=== PATIENT | male | born 1945 | race Caucasian/White ===

== ENCOUNTER → 2019-01-01 | Outpatient (CLI) | payer OTHER ==
[~2019-01-01] MED LIST: ASPI-1005 PO; ATOR40TA69 PO; CLOP75TA32 PO; GLIM4TAB3 PO; INSU100I21 SQ; LEVO75TA10 PO; LEVO88TA7 PO; LOSA50TA64 PO; METO-408 PO; SERT50TA12 PO; TYL3 PO
== END | disposition home or self-care (01) ==
LOC: SHCH 07:54
PROVIDERS: ATTEND Internal Medicine Cardiovascular Disease
DX: I11.9 Hypertensive heart disease without heart failure (principal); I25.810 Atherosclerosis of coronary artery bypass graft(s) without angina pectoris; I35.8 Other nonrheumatic aortic valve disorders
CPT/HCPCS: 93306

== ENCOUNTER → 2019-01-08 | Outpatient (CLI) | payer OTHER ==
[~2019-01-08] VITALS: Ht 185.4 cm; Wt 110.7 kg
[~2019-01-08] MED LIST changes: +REGADENOSON 0.4 MG/5 ML PF SYG IVP SCH
== END | disposition home or self-care (01) ==
LOC: SHCH 07:53
PROVIDERS: ATTEND Internal Medicine Cardiovascular Disease
DX: I25.810 Atherosclerosis of coronary artery bypass graft(s) without angina pectoris (principal); I10 Essential (primary) hypertension
CPT/HCPCS: 78452; 93017; 96374; A9500 ×2; J2785

== ENCOUNTER → 2023-10-04 | Outpatient (CLI) | payer OTHER ==
[~2023-10-04] MED LIST changes: -GLIM4TAB3 PO; +GLIM4TAB36 PO; -INSU100I21 SQ; +INSU100I22 SQ; +LEVO500T2 PO; -LEVO75TA10 PO; -REGADENOSON 0.4 MG/5 ML PF SYG IVP SCH; +SERT-439 PO; -SERT50TA12 PO; +TAMS0.4C32 PO; -TYL3 PO
== END | disposition home or self-care (01) ==
LOC: RAH 15:00
PROVIDERS: ATTEND Internal Medicine
DX: L03.116 Cellulitis of left lower limb (principal); I70.90 Unspecified atherosclerosis
CPT/HCPCS: 93925

== ENCOUNTER 2023-10-17 17:18 | Emergency (ER) | payer OTHER ==
[~2023-10-17] VITALS: Ht 185.4 cm; Wt 116.1 kg
[2023-10-17 21:31] LABS: BASOPHILS # (AUTO) 0.04 K/uL (0.00-0.20); BASOPHILS % (AUTO) 0.4 % (0.0-5.0); EOSINOPHILS # (AUTO) 0.11 K/uL (0.00-0.70); EOSINOPHILS % (AUTO) 1.2 % (0.0-8.0); HEMATOCRIT 47.8 % (42-54); IMMATURE GRANULOCYTE ABSOLUTE 0.04 K/uL (0-1); LYMPHOCYTES # (AUTO) 2.6 K/uL (1.0-4.8); LYMPHOCYTES % (AUTO) 27.6 % (21.0-51.0); MEAN CORPUSCULAR HGB CONC 32.8 g/dL (32.0-36.0); MEAN CORPUSCULAR VOLUME 94.5 fL (79-99); MONOCYTES # (AUTO) 0.9 K/uL (0.1-1.0); MONOCYTES % (AUTO) 9.7 % (3.0-13.0); NEUTROPHILS # (AUTO) 5.8 K/uL (1.8-7.7); NEUTROPHILS % (AUTO) 60.7 % (40.0-77.0); PLATELET COUNT (AUTO) 230 K/uL (130-400); RED BLOOD CELL COUNT(AUTO) 5.06 MIL/uL (4.50-6.20); RED CELL DISTRIBUTION WIDTH 13.7 % (11.0-15.5); WHITE BLOOD COUNT (AUTO) 9.5 K/uL (4.8-10.8)
[2023-10-17 21:39] LABS: CREATININE 1.9 mg/dL (0.5-1.5)
[2023-10-17 21:42] LABS: URIC ACID 7.7 mg/dL (2.6-7.2)
[2023-10-17 22:22] VITALS: BP 146/87; PULSE 74; RESP 18; O2SAT 97
== END 2023-10-17 23:52 | disposition home or self-care (01) ==
LOC: EDH 17:18
DX: I73.9 Peripheral vascular disease, unspecified (principal); E11.9 Type 2 diabetes mellitus without complications; E78.00 Pure hypercholesterolemia, unspecified; I10 Essential (primary) hypertension; Z79.4 Long term (current) use of insulin; Z79.82 Long term (current) use of aspirin; Z79.890 Hormone replacement therapy; Z79.899 Other long term (current) drug therapy; Z95.1 Presence of aortocoronary bypass graft
CPT/HCPCS: 36415; 73700; 80048; 84550; 85025

== ENCOUNTER 2023-11-22 08:17 | Day surgery (SDC) | payer OTHER ==
[2023-11-18 13:14] LABS: BASOPHILS # (AUTO) 0.03 K/uL (0.00-0.20); BASOPHILS % (AUTO) 0.4 % (0.0-5.0); EOSINOPHILS # (AUTO) 0.12 K/uL (0.00-0.70); EOSINOPHILS % (AUTO) 1.6 % (0.0-8.0); HEMATOCRIT 49.3 % (42-54); IMMATURE GRANULOCYTE ABSOLUTE 0.04 K/uL (0-1); LYMPHOCYTES # (AUTO) 2.4 K/uL (1.0-4.8); LYMPHOCYTES % (AUTO) 32.1 % (21.0-51.0); MEAN CORPUSCULAR HEMOGLOBIN 30.6 pg (27.0-33.0); MEAN CORPUSCULAR HGB CONC 32.3 g/dL (32.0-36.0); MEAN CORPUSCULAR VOLUME 94.8 fL (79-99); MONOCYTES # (AUTO) 0.8 K/uL (0.1-1.0); MONOCYTES % (AUTO) 10.2 % (3.0-13.0); NEUTROPHILS # (AUTO) 4.2 K/uL (1.8-7.7); NEUTROPHILS % (AUTO) 55.2 % (40.0-77.0); PLATELET COUNT (AUTO) 229 K/uL (130-400); RED CELL DISTRIBUTION WIDTH 13.6 % (11.0-15.5); WHITE BLOOD COUNT (AUTO) 7.6 K/uL (4.8-10.8)
[2023-11-18 13:24] LABS: CREATININE 1.6 mg/dL (0.5-1.5); INR 0.95 (0.85-1.15); POTASSIUM 4.8 mmol/L (3.5-5.1); PROTHROMBIN TIME 11.1 SEC (9.6-11.6)
[2023-11-18 13:26] LABS: PARTIAL THROMBOPLASTIN TIME 32.1 SEC (26.3-35.5)
[2023-11-18 13:39] VITALS: BP 175/91; PULSE 72; RESP 18
[~2023-11-22] VITALS: Ht 185.4 cm; Wt 117.9 kg
[2023-11-22] VITALS (19 sets, daily range): BP systolic 127–186; BP diastolic 62–93; PULSE 65–81; RESP 11–19
[~2023-11-22 08:17] MED LIST changes: +APIX5TAB PO; -ATOR40TA69 PO; +CHOL100034 PO; -CLOP75TA32 PO; +CYAN1TAB44 PO; -GLIM4TAB36 PO; -INSU100I22 SQ; +INSU300I SQ; +LEVO100T12 PO; -LEVO500T2 PO; -LEVO88TA7 PO; +MIRT7.5T11 PO; +REPA1TAB5 PO; +ROSU40TA21 PO; -SERT-439 PO; -TAMS0.4C32 PO
[2023-11-22] MEDS ORDERED: HEPARIN 10,000 UNIT/10ML (1,000 UNIT/ML) VIAL ONE (10:49)
[2023-11-22] MEDS ORDERED: LIDOCAINE HCL 1% MDV 50ML VIAL ONE (10:49)
[2023-11-22] MEDS ORDERED: LIDOCAINE HCL 400MG/20ML VIAL ONE (10:52)
[2023-11-22] MEDS ORDERED: MEPERIDINE-PF 25 MG/ML SYG ONE (11:11)
[2023-11-22] MEDS ORDERED: MIDAZOLAM HCL 1 MG/ML 2ML VIAL ONE ×2 (11:12→11:31)
[2023-11-22] MEDS ORDERED: PROPOFOL 10 MG/ML 20ML VIAL IV ONE (11:32)
[2023-11-22] MEDS ORDERED: SUCCINYLCHOLINE CHLORIDE 20 MG/ML 10 ML VIAL ONE (11:33)
[2023-11-22] MEDS ORDERED: ROCURONIUM BROMIDE 10MG/1ML 5ML VL ONE (11:34)
[2023-11-22] MEDS ORDERED: PHENYLEPHRINE HCL 10 MG/ML 1ML VIAL IV ONE (11:34)
[2023-11-22] MEDS ORDERED: FENTANYL CITRATE PF 50 MCG/1 ML 2ML VIAL ONE (11:42)
[2023-11-22] MEDS ORDERED: EPHEDRINE SULFATE 50 MG/ML AMPULE ONE (12:03)
[2023-11-22] MEDS ORDERED: DEXTROSE 50%-WATER 50 ML DISP.SYRIN IV ONE (14:02)
== END 2023-11-22 16:00 | disposition home or self-care (01) ==
LOC: DAH 08:17
PROVIDERS: ATTEND Internal Medicine Cardiovascular Disease
DX: I48.3 Typical atrial flutter (principal); I45.10 Unspecified right bundle-branch block; I10 Essential (primary) hypertension; E78.5 Hyperlipidemia, unspecified; E11.9 Type 2 diabetes mellitus without complications; G47.33 Obstructive sleep apnea (adult) (pediatric); E03.9 Hypothyroidism, unspecified; E66.9 Obesity, unspecified; Z79.01 Long term (current) use of anticoagulants; Z79.82 Long term (current) use of aspirin; Z95.1 Presence of aortocoronary bypass graft; Z79.890 Hormone replacement therapy; Z95.5 Presence of coronary angioplasty implant and graft; Z68.34 Body mass index [BMI] 34.0-34.9, adult
CPT/HCPCS: 80048; 85025; 85610; 85730; 36415; 93005 ×2; 93653; 82948 ×4; C1894 ×2; C1732 ×2; A4649 ×2; J3010; J3490 ×3; J0330; J7070; J1644 ×2; J2250; J2704; J2371; A4215; A4222; A4221; A4663; A4216; A4606; A4223 ×3; J2175

== ENCOUNTER → 2024-02-16 | Outpatient (CLI) | payer OTHER | END | disposition home or self-care (01) | LOC: SHCH 11:03 | PROVIDERS: ATTEND Internal Medicine Cardiovascular Disease | DX: I65.23 Occlusion and stenosis of bilateral carotid arteries (principal); I25.10 Atherosclerotic heart disease of native coronary artery without angina pectoris; I10 Essential (primary) hypertension | CPT/HCPCS: 93880 ==

== ENCOUNTER → 2024-04-13 | Outpatient (CLI) | payer OTHER ==
[~2024-04-13] MED LIST changes: -ROSU40TA21 PO; +ROSU40TA70 PO
[2024-04-13] MEDS: REGADENOSON 0.4 MG/5 ML PF SYG IVP ONE (12:01)
== END | disposition home or self-care (01) ==
LOC: SHCH 08:03
PROVIDERS: ATTEND Internal Medicine Cardiovascular Disease
DX: I25.10 Atherosclerotic heart disease of native coronary artery without angina pectoris (principal)
CPT/HCPCS: 78452; 96374; 93017; J2785; A9500 ×2

== ENCOUNTER 2024-05-25 07:45 | Day surgery (SDC) | payer OTHER ==
[2024-05-23 12:20] LABS: BASOPHILS # (AUTO) 0.04 K/uL (0.00-0.20); BASOPHILS % (AUTO) 0.5 % (0.0-5.0); EOSINOPHILS # (AUTO) 0.16 K/uL (0.00-0.70); EOSINOPHILS % (AUTO) 1.8 % (0.0-8.0); HEMATOCRIT 47.6 % (42-54); IMMATURE GRANULOCYTE ABSOLUTE 0.03 K/uL (0-1); LYMPHOCYTES # (AUTO) 2.7 K/uL (1.0-4.8); LYMPHOCYTES % (AUTO) 29.9 % (21.0-51.0); MEAN CORPUSCULAR HEMOGLOBIN 31.3 pg (27.0-33.0); MEAN CORPUSCULAR HGB CONC 33.4 g/dL (32.0-36.0); MEAN CORPUSCULAR VOLUME 93.7 fL (79-99); MONOCYTES # (AUTO) 0.9 K/uL (0.1-1.0); MONOCYTES % (AUTO) 9.7 % (3.0-13.0); NEUTROPHILS # (AUTO) 5.1 K/uL (1.8-7.7); NEUTROPHILS % (AUTO) 57.8 % (40.0-77.0); PLATELET COUNT (AUTO) 223 K/uL (130-400); RED BLOOD CELL COUNT(AUTO) 5.08 MIL/uL (4.50-6.20); RED CELL DISTRIBUTION WIDTH 13.6 % (11.0-15.5); WHITE BLOOD COUNT (AUTO) 8.9 K/uL (4.8-10.8)
[2024-05-23 12:25] LABS: APPEARANCE,URINE CLEAR (CLEAR); BILIRUBIN,URINE NEGATIVE (NEGATIVE); COLOR,URINE LIGHT-YELLOW (YELLOW); GLUCOSE, URINE (UA) NEGATIVE (NEGATIVE); KETONES,URINE NEGATIVE (NEGATIVE); LEUKOCYTE ESTERASE ,URINE 75 Leu/uL (NEGATIVE); NITRATE,URINE NEGATIVE (NEGATIVE); PH,URINE 5.5 (5.0-8.0); PROTEIN,URINE 200 mg/dL (NEGATIVE); UROBILINOGEN,URINE 0.2 mg/dL (0.2-1.0)
[2024-05-23 12:29] LABS: ADD UA MICROSCOPIC YES
[2024-05-23 12:35] LABS: PROTHROMBIN TIME 10.8 SEC (9.6-11.6)
[2024-05-23 12:37] LABS: BACTERIA,URINE FEW /HPF (None Seen); MUCUS,URINE RARE LPF (None Seen); OTHER CASTS, URINE 1 /LPF (None Seen); RBC,URINE 0-1 /HPF (0-1); SQUAMOUS EPITHELIAL CELL,UR RARE /HPF (0-2); WBC,URINE 26-50 /HPF (0-1)
[2024-05-23 12:48] LABS: CREATININE 1.8 mg/dL (0.5-1.3); POTASSIUM 4.8 mmol/L (3.5-5.1)
[2024-05-23 12:53] VITALS: BP 143/87; PULSE 83; RESP 18
[2024-05-23 13:34] LABS: B-TYPE NATRIURETIC PEPTIDE 16 pg/mL (0-100)
[~2024-05-25] VITALS: Ht 185.4 cm; Wt 116.4 kg
[2024-05-25] VITALS (11 sets, daily range): BP systolic 109–182; BP diastolic 54–88; PULSE 56–85; RESP 13–20
[~2024-05-25 07:45] MED LIST changes: -APIX5TAB PO
[2024-05-25] MEDS: 0.9%NACL 1000ML 1,000 ML IV ONE (08:56)
[2024-05-25] MEDS ORDERED: NITROGLYCERIN 50MG VIAL ONE (11:04)
[2024-05-25] MEDS ORDERED: NICARDIPINE 25MG INJ IV ONE (11:04)
[2024-05-25] MEDS ORDERED: IOHEXOL 350 MG/ML 100ML INFUS..BTL IV ONE (11:04)
[2024-05-25] MEDS ORDERED: HEPARIN 10,000 UNIT/10ML (1,000 UNIT/ML) VIAL ONE (11:04)
[2024-05-25] MEDS ORDERED: LIDOCAINE HCL 400MG/20ML VIAL ONE (11:05)
[2024-05-25] MEDS ORDERED: MEPERIDINE-PF 25 MG/ML SYG ONE ×2 (11:32→12:07)
[2024-05-25] MEDS ORDERED: MIDAZOLAM HCL 1 MG/ML 2ML VIAL ONE ×2 (11:33→12:08)
[2024-05-25] MEDS ORDERED: HYDRALAZINE 20MG/ML VIAL ONE (11:40)
[2024-05-25] MEDS ORDERED: ASPIRIN 325MG EC TAB PO ONE (12:38)
[2024-05-25] MEDS ORDERED: CLOPIDOGREL 300MG TAB ONE (12:38)
[2024-05-25] MEDS ORDERED: DEXTROSE 50%-WATER 50 ML DISP.SYRIN IV PRN (13:00)
[2024-05-25] MEDS ORDERED: 0.9%NACL 1000ML 1,000 ML IV SCH (13:00)
[2024-05-25] MEDS ORDERED: GLUCAGON 1MG KIT 1 MG ML IM PRN (13:00)
[2024-05-25] MEDS ORDERED: CLOP-31 PO (15:43)
[2024-05-25] MEDS ORDERED: INSULIN HUMULIN R 100 UNIT/ML 3ML SQ SCH (16:30)
== END 2024-05-25 19:00 | disposition home or self-care (01) ==
LOC: DAH 07:45
PROVIDERS: ATTEND Internal Medicine Cardiovascular Disease
DX: I25.118 Atherosclerotic heart disease of native coronary artery with other forms of angina pectoris (principal); I25.708 Atherosclerosis of coronary artery bypass graft(s), unspecified, with other forms of angina pectoris; I11.0 Hypertensive heart disease with heart failure; I50.9 Heart failure, unspecified; E11.9 Type 2 diabetes mellitus without complications; I45.10 Unspecified right bundle-branch block; Z95.5 Presence of coronary angioplasty implant and graft; G47.33 Obstructive sleep apnea (adult) (pediatric); Z79.899 Other long term (current) drug therapy
CPT/HCPCS: 80048; 83880; 85025; 85610; 85730; 87086 ×2; 81001; 36415 ×2; 71045; 93005; 93459; 96360; 96361; 92978; 85347; 87186; C9600; Q9965; C1769 ×2; C1894; C1874 ×3; C1887 ×2; C1760; C1753; J3490 ×2; J7030; J0360; J1644 ×2; J2250 ×2; J2175 ×2; Q9967; A4215; A4222; A4221; A4663; A4216; A4606; C9604; A4223 ×3; 99156; 99157

== ENCOUNTER → 2024-05-30 | Outpatient (CLI) | payer OTHER ==
[~2024-05-30] MED LIST changes: +CLOP-31 PO
[2024-05-30 16:21] LABS: BASOPHILS # (AUTO) 0.05 K/uL (0.00-0.20); BASOPHILS % (AUTO) 0.6 % (0.0-5.0); EOSINOPHILS # (AUTO) 0.19 K/uL (0.00-0.70); EOSINOPHILS % (AUTO) 2.2 % (0.0-8.0); HEMATOCRIT 47.6 % (42-54); IMMATURE GRANULOCYTE ABSOLUTE 0.03 K/uL (0-1); LYMPHOCYTES # (AUTO) 3.5 K/uL (1.0-4.8); LYMPHOCYTES % (AUTO) 40.6 % (21.0-51.0); MEAN CORPUSCULAR HEMOGLOBIN 31.3 pg (27.0-33.0); MEAN CORPUSCULAR HGB CONC 32.8 g/dL (32.0-36.0); MEAN CORPUSCULAR VOLUME 95.6 fL (79-99); MONOCYTES # (AUTO) 0.9 K/uL (0.1-1.0); MONOCYTES % (AUTO) 10.3 % (3.0-13.0); PLATELET COUNT (AUTO) 216 K/uL (130-400); RED BLOOD CELL COUNT(AUTO) 4.98 MIL/uL (4.50-6.20); WHITE BLOOD COUNT (AUTO) 8.7 K/uL (4.8-10.8)
[2024-05-30 16:59] LABS: ALBUMIN 3.5 g/dL (3.5-5.0); BILIRUBIN,TOTAL 0.4 mg/dL (0.2-1.0); CREATININE 1.8 mg/dL (0.5-1.3); POTASSIUM 4.5 mmol/L (3.5-5.1); TOTAL PROTEIN, SERUM 8.1 g/dL (6.0-8.3)
== END | disposition home or self-care (01) ==
LOC: LAB 13:47
PROVIDERS: ATTEND Internal Medicine Cardiovascular Disease
DX: I10 Essential (primary) hypertension (principal)
CPT/HCPCS: 36415; 80053; 83735; 85025

== ENCOUNTER 2024-10-04 16:33 | Observation (INO) | payer OTHER ==
[~2024-10-04] VITALS: Ht 185.4 cm; Wt 114.0 kg
[~2024-10-04 16:33] MED LIST changes: -ROSU40TA70 PO; +ROSU40TA88 PO
--- NOTE | 2024-10-04 17:08 | EKG ---
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 : 1945 Requested By: CARIDAD ALLEN Order Number: [id number] Reading MD: Radha Hernandez Measurements Intervals [place] Rate: 67 P: 5 MO: 239 QRS: 88 QRSD: 131 T: 135 QT: 436 QTc: 463 Interpretive Statements Sinus rhythm Prolonged MO interval Probable left atrial enlargement Right bundle branch block Abnrm T, consider ischemia, anterolateral lds Compared to ECG 05/23/2024 12:07:31 Myocardial infarct finding no longer present Possible ischemia still present Electronically Signed On 10-04-2024 17:35:26 PROVISIONING ANALYST by Radha Hernandez Please click the below link to view image of tracing.
--- NOTE | 2024-10-04 17:09 | HP ---
[facility] HISTORY & PHYSICAL Date Patient Seen: Oct 04, 2024 Time of Visit: 2300 Supervising Physician: [Dr. Tony Dangelo ] Primary Care Physician: [Dr. Maggie Betancur ] Outpatient Specialists: [Dr. Chavez-cardiology ] Inpatient Consults: [Dr. Sow-cardiology ] PROBLEM LIST: Syncopal work-up-POA HX of A.flutter s/p ablation CAD s/p CABGx4 and stent x3 Primary HTN Diabetes mellitus HLD Prostate CA s/p radiation and surgery; on remission AVTAR Hypothyroidism HX of sepsis and ESBL HX of Kidney stone HX of c.diff Plan: -Admit to cardiac telemetry unit -Obtain echo and brain MRI in am -CT head was unremarkable -Pending bilateral carotid doppler result -Home meds reconciled -Cardiology plans to start him on unspecified anticoagulant according to the patient and -Orthostatic BP q shift HPI: [Patient is a 79-year-old male with PMH significant for CAD s/p CABG x4 and stent, HTN, HLD, DM, prostate CA, AVTAR and A.flutter s/p ablation who was sent by his textile designer for syncopal work-up. Patient claims he had a fainting episode last July 08 but did not seek hospitalization. He went today for his cardiac check-up and mentioned the incident to the VENEER TAPER and was advised to get admitted for further work-up and plans for initiating on an unnamed blood thinner. He denies neurologic symptoms or gait instability. Physical assessment was unrevealing without respiratory or cardiac compromise. Goals of care were discu ssed with the patient and awaiting for further test results. ] PAST MEDICAL HX: see above PAST SURGICAL HX: noncontributory SOCIAL HISTORY: No tobacco, ETOH, or illicit drug use Coded Allergies: No Known Allergies (Unverified Allergy, 05/07/13) REVIEW OF SYSTEMS: 12 point ROS reviewed with patient. Pertinent positives mentioned above. Otherwise negative. PHYSICAL EXAM: GENERAL: alert, awake oriented x 3 HEENT: EOMI, Sclera non icteric, moist mucosa NECK: Supple, no JVD, trachea midline LUNGS: Clear breath sounds bilaterally. No wheezes HEART: Regular rate and rhythm. Normal S1 and S2, without murmurs ABD: Abdomen soft, nontender. Bowel sounds present EXT: No clubbing cyanosis or edema NEURO: Alert and oriented to person, follows commands Vital Signs (last 8hr) Date Time Temp Pulse Resp B/P (MAP) Pulse Ox O2 Delivery O2 Flow Rate FiO2 10/04/24 17:04 98.1 70 18 164/85 94 Laboratory Result(s) Test 10/04/24 17:12 10/04/24 21:32 White Blood Count 8.8 K/uL (4.8-10.8) Red Blood Count 4.99 MIL/uL (4.50-6.20) Hemoglobin 15.3 g/dL (14.0-18.0) Hematocrit 46.3 % (42-54) Mean Corpuscular Volume 92.8 fL (79-99) Mean Corpuscular Hemoglobin 30.7 pg (27.0-33.0) Mean Corpuscular Hemoglobin Concent 33.0 g/dL (32.0-36.0) Red Cell Distribution Width 13.7 % (11.0-15.5) Platelet Count 231 K/uL (130-400) Mean Platelet Volume 9.8 fL (7.5-10.5) Immature Granulocyte % (Auto) 0.2 % (0-1) Neutrophils (%) (Auto) 63.2 % (40.0-77.0) Lymphocytes (%) (Auto) 26.5 % (21.0-51.0) Monocytes (%) (Auto) 8.7 % (3.0-13.0) Eosinophils (%) (Auto) 1.1 % (0.0-8.0) Basophils (%) (Auto) 0.3 % (0.0-5.0) Neutrophils # (Auto) 5.5 K/uL (1.8-7.7) Lymphocytes # (Auto) 2.3 K/uL (1.0-4.8) Monocytes # (Auto) 0.8 K/uL (0.1-1.0) Eosinophils # (Auto) 0.10 K/uL (0.00-0.70) Basophils # (Auto) 0.03 K/uL (0.00-0.20) Absolute Immature Granulocyte (auto 0.02 K/uL (0-1) Nucleated Red Blood Cells 0.0 % (0.0-0.19) Sodium Level 136 mmol/L (136-145) Potassium Level 5.1 mmol/L (3.5-5.1) Chloride Level 101 mmol/L (101-111) Carbon Dioxide Level 25 mmol/L (21-32) Blood Urea Nitrogen 26 mg/dL (7-18) Creatinine 1.8 mg/dL (0.5-1.3) Glomerular Filtration Rate Calc 37 mL/min (>90) Random Glucose 331 mg/dL (70-105) Hemoglobin A1c 9.1 % (4.0-6.0) Estimated Average Glucose (eAG) 214 mg/dL (70-126) Total Calcium 9.1 mg/dL (8.5-10.1) Magnesium Level 2.00 mg/dL (1.80-2.40) Total Creatine Kinase 66 U/L (21-232) Troponin I High Sensitivity 19.3 ng/L (4-75) B-Type Natriuretic Peptide 86 pg/mL (0-100) Thyroid Stimulating Hormone (TSH) 1.18 uIU/mL (0.36-3.74) Urine Color LIGHT-YELLOW (YELLOW) Urine Appearance CLEAR (CLEAR) Urine pH 5.5 (5.0-8.0) Urine Specific [place] 1.016 (1.001-1.031) Urine Protein 100 mg/dL (NEGATIVE) Urine Glucose (UA) 500 mg/dL (NEGATIVE) Urine Ketones NEGATIVE mg/dL (NEGATIVE) Urine Occult Blood SMALL (NEGATIVE) Urine Nitrate NEGATIVE (NEGATIVE) Urine Bilirubin NEGATIVE mg/dL (NEGATIVE) Urine Urobilinogen 0.2 mg/dL (0.2-1.0) Urine Leukocyte Esterase NEGATIVE [place]/uL Urine RBC 11-25 /HPF (0-1) Urine WBC 11-25 /HPF (0-1) Urine Squamous Epithelial Cells RARE /HPF (0-2) Urine Bacteria RARE /HPF (None Seen) LABS: DIAGNOSTICS / RADIOLOGY RESULTS: [ ] PLAN NEURO: Minimize central acting medications as possible. Maintain fall precautions, adequate lighting during the day PULMONARY: Supplemental 02 as needed. Maintain aspiration precautions at all times CARDIOVASCULAR: Follow hemodynamics. Vital signs per facility protocol GI & NUTRITION: Continue with nutritional support. Continue stool softeners and laxatives as needed. KIDNEYS & ELECTROLYTES: Strict monitoring of intake, output and overall fluid balance. Avoid nephrotoxic medications to the extent possible. Medications to be dosed according to renal function. Monitor electrolytes and replace as needed ENDOCRINE: Maintain blood glucose between 100-180 at all times. Hypoglycemia protocol in place INFECTIOUS DISEASE: Trend temperature, WBC and procalcitonin level Follow cultures, deescalate antibiotics as soon as possible. Panculture if new onset fever ONCOLOGY/HEMATOLOGY/COAGULATION: Monitor for s/s of bleeding Monitor hemoglobin, coagulation studies as needed SKIN: Pressure ulcer prevention per facility protocol Specialty mattress ORTHO/REHAB: Continue PT/OT Prophylaxis: Continue GI and DVT prophylaxis Code Status: Full Resuscitation Disposition: TBD Other: Total patient care time: 45 minutes KIMBERLEE SCHWARZ Oct 04, 2024 17:09
[2024-10-04 17:23] LABS: BASOPHILS # (AUTO) 0.03 K/uL (0.00-0.20); BASOPHILS % (AUTO) 0.3 % (0.0-5.0); EOSINOPHILS % (AUTO) 1.1 % (0.0-8.0); HEMATOCRIT 46.3 % (42-54); IMMATURE GRANULOCYTE ABSOLUTE 0.02 K/uL (0-1); LYMPHOCYTES # (AUTO) 2.3 K/uL (1.0-4.8); LYMPHOCYTES % (AUTO) 26.5 % (21.0-51.0); MEAN CORPUSCULAR HEMOGLOBIN 30.7 pg (27.0-33.0); MEAN CORPUSCULAR VOLUME 92.8 fL (79-99); MONOCYTES # (AUTO) 0.8 K/uL (0.1-1.0); MONOCYTES % (AUTO) 8.7 % (3.0-13.0); NEUTROPHILS # (AUTO) 5.5 K/uL (1.8-7.7); NEUTROPHILS % (AUTO) 63.2 % (40.0-77.0); PLATELET COUNT (AUTO) 231 K/uL (130-400); RED BLOOD CELL COUNT(AUTO) 4.99 MIL/uL (4.50-6.20); RED CELL DISTRIBUTION WIDTH 13.7 % (11.0-15.5); WHITE BLOOD COUNT (AUTO) 8.8 K/uL (4.8-10.8)
--- NOTE | 2024-10-04 17:45 | NUR ---
PT JUST NOW PLACED IN MY ED BED 11
[2024-10-04 17:46] LABS: CREATININE 1.8 mg/dL (0.5-1.3); POTASSIUM 5.1 mmol/L (3.5-5.1); THYROID STIMULATING HORMONE 1.18 uIU/mL (0.36-3.74)
[2024-10-04 18:06] LABS: B-TYPE NATRIURETIC PEPTIDE 86 pg/mL (0-100)
--- NOTE | 2024-10-04 18:06 | HMCIMG ---
CT HEAD/BRAIN W/O CONTRAST HISTORY: Syncope COMPARISON: None TECHNIQUE: Multiple sequential axial images of the head were obtained from the base of the skull through vertex. Patient was not given contrast through intravenous route. FINDINGS: The ventricles and extraventricular CSF spaces are dilated consistent with cerebral atrophy. Nonspecific white matter changes seen. There is atherosclerosis. Dystrophic calcification is seen in the left frontal area measuring 8 mm. There is no midline shift, mass effect or herniation. No acute intracranial bleed is seen. Visualized portion of the paranasal sinuses are grossly within normal limits. IMPRESSION: 1. No acute intracranial bleed is seen. 2. Atrophy with white matter changes. CT was performed with one or more following dose reduction techniques: automated exposure control, adjustment of the mA and kv according to patient's size, or use of a iterative reconstruction technique.
[2024-10-04 18:22] LABS: HEMOGLOBIN A1C 9.1 % (4.0-6.0)
--- NOTE | 2024-10-04 18:47 | NUR ---
SONO TECH AT BEDSIDE DOING CAROTID DOPPLER
--- NOTE | 2024-10-04 19:10 | NUR ---
REPORT ENDORSED TO [facility]
[2024-10-04] MEDS: FAMOTIDINE 20MG TAB PO SCH (20:50)
[2024-10-04] MEDS: INSULIN humuLIN R 100 UNIT/ML 3ML SQ SCH (20:50)
--- NOTE | 2024-10-04 21:19 | HMCIMG ---
CAROTID ULTRASOUND CLINICAL INFORMATION:syncope Carotid bifurcations: There is calcified plaque at the right carotid bifurcation and soft on the left. Vertebrals: Antegrade bilaterally RCCA: 65 cm/s LCCA: 61 cm/s LEDY: 161 cm/s LICA: 70 cm/s Ratio: 2.4 Ratio: 1.1 IMPRESSION: Mild atherosclerotic plaques at the carotid bifurcations. There is elevation of the peak systolic flow velocity ratio of the right internal carotid artery as well as the intrahepatic common carotid artery peak systolic flow velocity ratio suggesting a 50-69% stenosis of the right internal carotid artery. .
[2024-10-04] MEDS ORDERED: REPA2TAB8 PO (21:52)
[2024-10-04 22:00] LABS: APPEARANCE,URINE CLEAR (CLEAR); BACTERIA,URINE RARE /HPF (None Seen); BILIRUBIN,URINE NEGATIVE (NEGATIVE); COLOR,URINE LIGHT-YELLOW (YELLOW); GLUCOSE, URINE (UA) 500 mg/dL (NEGATIVE); KETONES,URINE NEGATIVE (NEGATIVE); LEUKOCYTE ESTERASE ,URINE NEGATIVE Leu/uL (NEGATIVE); MUCUS,URINE FEW LPF (None Seen); NITRATE,URINE NEGATIVE (NEGATIVE); OCCULT BLOOD,URINE SMALL (NEGATIVE); PH,URINE 5.5 (5.0-8.0); PROTEIN,URINE 100 mg/dL (NEGATIVE); SQUAMOUS EPITHELIAL CELL,UR RARE /HPF (0-2); UROBILINOGEN,URINE 0.2 mg/dL (0.2-1.0)
[2024-10-04 22:10] VITALS: BP 180/78; PULSE 71; RESP 20; TEMP 97.6; O2SAT 97
[2024-10-05] VITALS (9 sets, daily range): BP systolic 98–167; BP diastolic 65–92; PULSE 58–87; RESP 18–20; TEMP 97.6–98.4; O2SAT 96
[2024-10-05] MEDS ORDERED: LAbetaLOL 20MG SYG IV PRN (02:30)
[2024-10-05 05:20] LABS: ALBUMIN 2.9 g/dL (3.5-5.0); BILIRUBIN,TOTAL 0.2 mg/dL (0.2-1.0); CREATININE 1.6 mg/dL (0.5-1.3); POTASSIUM 4.3 mmol/L (3.5-5.1); TOTAL PROTEIN, SERUM 6.8 g/dL (6.0-8.3)
[2024-10-05] MEDS: levoTHYROxine 100 MCG TABLET PO SCH (05:46)
--- NOTE | 2024-10-05 06:56 | CONS ---
[facility] CARDIOLOGY CONSULTATION NOTE Date Patient Seen: Oct 05, 2024 Time of Visit: 06:56 Requesting Physician: GERMAN Reason for Consultation: Office follow up, aflutter/pre syncope History of Present Illness: Pt is an 79 year old male pt well known to the practice, sent over from the office yesterday after being found to have aflutter alternating with 1st degree av block and relatively recent episode of syncope with LOC and orthostatic hypotension. He has a past medical history of HTN, HLD, Obesity, AVTAR pending CPAP restart, CAD post CABG and subsequent stenting in Nov 2023, Moderate LEDY stenosis, Hypothyroidism, nephrolithiasis, prostate cancer, aflutter post ablasion earlier this year, prior ESBL/CDiff infections - currently without fever, +recurrent syncope and weakness. Pt/ report in Late June or early Jul, pt had LOC after fall while in the bathroom, found him and had to pull him out from being wedged between the toilet and the wall. Pt was struggling to breath and not conscious for several minutes. She called her neighbors to help him get out, EMS was not called as pt refused after awakening, duration of LOC is unsure, pt had no external bleeding. He has had a little facial droop to the lip since then per the . He had previously been on anticoagulation prior to the ablation earlier this year. He was at the office for AVTAR eval report as he is trying to get the CPAP replaced since not functioning for more than 1 year. He reports intermittently having sob, leg edema that worsens and persists with light headedness. Orthostatic BP's positive in the office. He had 12 lead EKG in office demonstrating aflutter 3:1 conduction alternating with 1st degree av block. Here at the hospital, pt has been in 1st degree AV block. Pt has undergone CT head that was negative for evidence of remote bleed or stroke. He underwent carotid doppler. Creatinine was elevated at 1.8, down to 1.6 today. He denies any symptoms overnight. Pt pending echo and MRI of the brain. If negative, pt will be sent home with 1 week of outpt monitoring as his CHADS vac is 7 with 11.2% risk of stroke but his syncope/presyncope symptoms are persistent. No evidence of active infection. He is high risk for falling and head trauma. Consideration for eliquis 2.5mg po bid if pt having persistent arrhythmia can be discussed with pt in the office. Past Medical History: HTN HLD Aflutter post ablasion Nov 2023 LEDY moderate stenosis, stable, on asa/plavix Obesity AVTAR on CPAP ( machine pending replacement - non functional) CAD Hypothyroidism ESBL/Cdiff infections remotely Nephrolithiasis Prostate CA in remission Past Surgical History: CABG x 4 2014 ESTRADA to LAD, sequential SVG to D1 and then ramus, SVG PDA Stenting coronaries Nov 2023 D2 and Mid RCA ablation 11/2023 Family History: [ ] Social History: lives with Habits: [Never] smoker. [Denies] alcohol consumption. [Denies] illicit drug use Home Meds: [ ] Current Meds: [ ] Review of Systems: CONST: [No fever, fatigue, or weight changes.] EYES: [No recent vision problems.] ENT: [No congestion, ear pain, or sore throat.] C/V: [No chest pain, palpitations, or edema.] RESP: [No cough, congestion, wheezing or shortness of breath.] GI: [No abdominal pain, nausea, vomiting, constipation, or diarrhea.] : [No incontinence or dysuria.] SKIN: [No rash.] NEURO: [No headache, focal numbness or weakness, dizziness, or seizures.] PSYCH: [No depression or anxiety.] HEME: [No abnormal bruising or bleeding.] LYMPH: [No swollen glands.] Physical Examination: GENERAL: [No acute distress., pale, elderly, frail. HEAD: [Normal with no signs of head trauma, bitemporal wasting. EYES: [PERRLA, EOMI, conjunctiva and sclera normal.] ENT: [Hearing grossly intact, normal oropharynx.] NECK: [Supple without JVD. There is no tenderness, lymphadenopathy, or masses. No thyromegaly. Normal carotid upstrokes without bruits.] LUNGS: [Clear breath sounds bilaterally. There are right basilar rales one third of the way up the chest. No wheezes, or rhonchi.] HEART: [Normal rate and rhythm. Normal S1 and S2 with mild parasternal murmur, gallop or rub.] VASC: [Peripheral pulses +1 bilaterally.] ABD: [Bowel sounds normal, soft, nontender, no masses, no organomegaly. No audible bruits.] : [Not examined] LYMPH: [No lymphadenopathy noted.] EXT: [No clubbing, cyanosis or edema.] SKIN: Dry, No rashes or lesions noted.] NEURO: [Awake, alert, and oriented x3. No focal sensory or strength deficits noted.] Vital Signs (last 8hr) Date Time Temp Pulse Resp B/P (MAP) Pulse Ox O2 Delivery O2 Flow Rate FiO2 10/05/24 04:00 98.4 87 18 98/65 96 Nasal Cannula 2.0 10/05/24 04:00 97.9 58 20 140/72 92 Room Air 10/05/24 00:00 97.9 72 20 146/79 94 Room Air Laboratory: [ ] Hematology Labs: Test 10/04/24 17:12 Range/Units White Blood Count 8.8 4.8-10.8 K/uL Red Blood Count 4.99 4.50-6.20 MIL/uL Hemoglobin 15.3 14.0-18.0 g/dL Hematocrit 46.3 42-54 % Mean Corpuscular Volume 92.8 79-99 fL Mean Corpuscular Hemoglobin 30.7 27.0-33.0 pg Mean Corpuscular Hemoglobin Concent 33.0 32.0-36.0 g/dL Red Cell Distribution Width 13.7 11.0-15.5 % Platelet Count 231 130-400 K/uL Mean Platelet Volume 9.8 7.5-10.5 fL Immature Granulocyte % (Auto) 0.2 0-1 % Neutrophils (%) (Auto) 63.2 40.0-77.0 % Lymphocytes (%) (Auto) 26.5 21.0-51.0 % Monocytes (%) (Auto) 8.7 3.0-13.0 % Eosinophils (%) (Auto) 1.1 0.0-8.0 % Basophils (%) (Auto) 0.3 0.0-5.0 % Neutrophils # (Auto) 5.5 1.8-7.7 K/uL Lymphocytes # (Auto) 2.3 1.0-4.8 K/uL Monocytes # (Auto) 0.8 0.1-1.0 K/uL Eosinophils # (Auto) 0.10 0.00-0.70 K/uL Basophils # (Auto) 0.03 0.00-0.20 K/uL Absolute Immature Granulocyte (auto 0.02 0-1 K/uL Nucleated Red Blood Cells 0.0 0.0-0.19 % Chemistry Labs: Test 10/05/24 05:07 10/05/24 04:35 10/04/24 17:12 Range/Units Whole Blood Glucose 234 H 70-110 MG/DL Sodium Level 137 136-145 mmol/L Potassium Level 4.3 3.5-5.1 mmol/L Chloride Level 103 101-111 mmol/L Carbon Dioxide Level 27 21-32 mmol/L Blood Urea Nitrogen 26 H 7-18 mg/dL Creatinine 1.6 H 0.5-1.3 mg/dL Glomerular Filtration Rate Calc 43 >90 mL/min Random Glucose 253 H 70-105 mg/dL Total Calcium 8.6 8.5-10.1 mg/dL Total Bilirubin 0.2 0.2-1.0 mg/dL Aspartate Amino Transf (AST/SGOT) 15 10-37 U/L Alanine Aminotransferase (ALT/SGPT) 15 12-78 U/L Alkaline Phosphatase 85 50-136 U/L Total Protein 6.8 6.0-8.3 g/dL Albumin 2.9 L 3.5-5.0 g/dL Triglycerides Level 268 H 30-200 mg/dL Cholesterol Level 136 <200 mg/dL LDL Cholesterol 68 0-99 mg/dL HDL Cholesterol 37 29-71 mg/dL Hemoglobin A1c 9.1 H 4.0-6.0 % Estimated Average Glucose (eAG) 214 H 70-126 mg/dL Magnesium Level 2.00 1.80-2.40 mg/dL Total Creatine Kinase 66 21-232 U/L Troponin I High Sensitivity 19.3 4-75 ng/L B-Type Natriuretic Peptide 86 0-100 pg/mL Thyroid Stimulating Hormone (TSH) 1.18 # 0.36-3.74 uIU/mL Diagnostics / Radiology: PATIENT: ITZEL MANLEY MR#: [id number] : 1945 SEX: M AGE: 79 LOCATION: [facility] ORDER 51 STATUS: REG ER REPORT#: [id number] SERVICE 49 REASON: head injury ORDERING PHYSICIAN: CARIDAD ALLEN PROCEDURE: HEAD WO - CT HEAD/BRAIN W/O CONTRAST CT HEAD/BRAIN W/O CONTRAST HISTORY: Syncope COMPARISON: None TECHNIQUE: Multiple sequential axial images of the head were obtained from the base of the skull through vertex. Patient was not given contrast through intravenous route. FINDINGS: The ventricles and extraventricular CSF spaces are dilated consistent with cerebral atrophy. Nonspecific white matter changes seen. There is atherosclerosis. Dystrophic calcification is seen in the left frontal area measuring 8 mm. There is no midline shift, mass effect or herniation. No acute intracranial bleed is seen. Visualized portion of the paranasal sinuses are grossly within normal limits. IMPRESSION: 1. No acute intracranial bleed is seen. 2. Atrophy with white matter changes. CT was performed with one or more following dose reduction techniques: automated exposure control, adjustment of the mA and kv according to patient's size, or use of a iterative reconstruction technique. DICTATED BY: KODI FERNANDO MD DATE: 10/04/241802 ELECTRONICALLY SIGNED BY: KODI FERNANDO MD DATE: 10/04/241805 PATIENT: ITZEL MANLEY MR#: [id number] : 1945 SEX: M AGE: 79 LOCATION: [facility] ORDER 50 STATUS: ADM IN REPORT#: [id number] SERVICE 1643 REASON: syncope ORDERING PHYSICIAN: CARIDAD ALLEN PROCEDURE: CAROTID - US CAROTID DUPLEX CAROTID ULTRASOUND CLINICAL INFORMATION:syncope Carotid bifurcations: There is calcified plaque at the right carotid bifurcation and soft on the left. Vertebrals: Antegrade bilaterally RCCA: 65 cm/s LCCA: 61 cm/s LEDY: 161 cm/s LICA: 70 cm/s Ratio: 2.4 Ratio: 1.1 IMPRESSION: Mild atherosclerotic plaques at the carotid bifurcations. There is elevation of the peak systolic flow velocity ratio of the right internal carotid artery as well as the intrahepatic common carotid artery peak systolic flow velocity ratio suggesting a 50-69% stenosis of the right internal carotid artery. . DICTATED BY: WILLA SPENCE DO DATE: 10/04/242111 ELECTRONICALLY SIGNED BY: WILLA SPENCE DO DATE: 10/04/242118 Assessment: Recent SYncope episode with LOC Concern for TIA vs stroke vs micturition syncope, residual mild mouth droop per Paroxysmal Aflutter alternating with 1st degree av block CAD post CABG remotely and subsequent stenting in Nov 2023 ablation in 2023 HTN HLD Obesity AVTAR currently not on CPAP Carotid stenosis to right ICA, moderated, stable Plan: If echo negative for evidence of thrombus and MRI negative for evidence of stroke, we will wait on anticoagulation, if positive will need anticoagulation low dose with eliquis 2.5 mg po bid and stop asa, continue plavix - ( if negative continue asa and plavix) Pt has CKD and multiple falling episode, increasing risk for bleeding on chronic anticoagulation, Plan for outpt holter monitor as outpt. Pt will need one issued from office. Pending MRI and Echo today. Follow upon results - possible discharge later today. ALISHA ARANA AGACNP Oct 05, 2024 06:56
[2024-10-05] MEDS: ASPIRIN 81 MG EC TAB PO SCH (08:14)
[2024-10-05] MEDS: FOLIC ACID PO SCH (08:15)
[2024-10-05] MEDS: CYANOCOBALAMIN PO SCH (08:15)
[2024-10-05] MEDS: LoSARTan 50 MG TABLET PO SCH (08:15)
[2024-10-05] MEDS: Cholecalciferol (Vitamin D3) (Vitamin D3) 25 MCG PO SCH (08:15)
[2024-10-05] MEDS: cloPIDOgrel 75MG TAB PO SCH (08:15)
[2024-10-05] MEDS ORDERED: INSULIN GLARgine 100 UNITS/ML 10 ML VIAL SQ SCH (09:00)
[2024-10-05] MEDS ORDERED: ASPIRIN 81MG CHEW TAB PO SCH (09:00)
[2024-10-05] MEDS ORDERED: REPAGLINIDE 2 MG PO SCH (09:00)
[2024-10-05] MEDS ORDERED: APIXaban 2.5 MG TABLET PO SCH (09:00)
--- NOTE | 2024-10-05 11:13 | HMCIMG ---
MR BRAIN WO CON HISTORY: Syncope COMPARISON: None TECHNIQUE: MRI of the brain was performed utilizing multiple pulse sequences in axial, coronal and sagittal planes. Patient was not given contrast through intravenous route. FINDINGS: The ventricles and extraventricular CSF spaces are dilated consistent with cerebral atrophy. Nonspecific white matter changes are seen. 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 There is left mastoid effusion. There is no midline shift, mass effect or herniation. No subacute hemorrhage is seen. No MR evidence of acute infarct is seen in the diffusion weighted images. Cerebellar tonsils are in normal position. No evidence of mucoperiosteal thickening is seen of the visualized paranasal sinuses. No MR evidence of a mass lesion is seen in this noncontrast study. IMPRESSION: 1. No MR evidence of acute infarct is seen in the diffusion weighted images. Atrophy with white matter changes. 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
--- NOTE | 2024-10-05 13:13 | NUR ---
DCP: HOME Pt states he lives independently with his [address] [phone]. Pt reports he remains able to complete his ADLS without assistance, has a walker with seat for outdoor use, no in home care services. PCP is John Betancur and uses [facility] for rx. DCP is home, denies need for SNF or referral. Addendum: 10/05/24 at 1314 by ELZBIETA MACKAY SS Amended: Links added.
--- NOTE | 2024-10-05 14:34 | PN ---
[facility] PROGRESS NOTE Date Patient Seen: Oct 05, 2024 Time of Visit: 14:34 Supervising Physician: [ ] Primary Care Physician: [Dr. Maggie Betancur ] Outpatient Specialists: [Dr. Chavez-cardiology ] Inpatient Consults: [Dr. Sow-cardiology ] PROBLEM LIST: Syncopal work-up-POA HX of A.flutter s/p ablation CAD s/p CABGx4 and stent x3 Primary HTN Diabetes mellitus HLD Prostate CA s/p radiation and surgery; on remission AVTAR Hypothyroidism HX of sepsis and ESBL HX of Kidney stone HX of c.diff Plan: -Admit to cardiac telemetry unit -Obtain echo and brain MRI in am -CT head was unremarkable -Pending bilateral carotid doppler result -Home meds reconciled -Cardiology plans to start him on unspecified anticoagulant according to the patient and -Orthostatic BP q shift INTERVAL HISTORY: [ ] REVIEW OF SYSTEMS: 12 point ROS reviewed with patient. Pertinent positives mentioned above. O therwise negative. PHYSICAL EXAM: GENERAL: alert, awake oriented x 3 HEENT: EOMI, Sclera non icteric, moist mucosa NECK: Supple, no JVD, trachea midline LUNGS: Clear breath sounds bilaterally. No wheezes HEART: Regular rate and rhythm. Normal S1 and S2, without murmurs ABD: Abdomen soft, nontender. Bowel sounds present EXT: No clubbing cyanosis or edema NEURO: Alert and oriented to person, follows commands Vital Signs (last 8hr) Date Time Temp Pulse Resp B/P (MAP) Pulse Ox O2 Delivery O2 Flow Rate FiO2 10/05/24 11:39 97.5 76 20 156/78 97 Room Air 21 10/05/24 09:06 86 18 122/71 93 10/05/24 09:05 75 152/74 94 10/05/24 09:04 86 20 142/67 92 10/05/24 07:20 98.4 78 18 167/92 96 Room Air 21 LABS: Hematology Labs: Test 10/04/24 17:12 Range/Units White Blood Count 8.8 4.8-10.8 K/uL Red Blood Count 4.99 4.50-6.20 MIL/uL Hemoglobin 15.3 14.0-18.0 g/dL Hematocrit 46.3 42-54 % Mean Corpuscular Volume 92.8 79-99 fL Mean Corpuscular Hemoglobin 30.7 27.0-33.0 pg Mean Corpuscular Hemoglobin Concent 33.0 32.0-36.0 g/dL Red Cell Distribution Width 13.7 11.0-15.5 % Platelet Count 231 130-400 K/uL Mean Platelet Volume 9.8 7.5-10.5 fL Immature Granulocyte % (Auto) 0.2 0-1 % Neutrophils (%) (Auto) 63.2 40.0-77.0 % Lymphocytes (%) (Auto) 26.5 21.0-51.0 % Monocytes (%) (Auto) 8.7 3.0-13.0 % Eosinophils (%) (Auto) 1.1 0.0-8.0 % Basophils (%) (Auto) 0.3 0.0-5.0 % Neutrophils # (Auto) 5.5 1.8-7.7 K/uL Lymphocytes # (Auto) 2.3 1.0-4.8 K/uL Monocytes # (Auto) 0.8 0.1-1.0 K/uL Eosinophils # (Auto) 0.10 0.00-0.70 K/uL Basophils # (Auto) 0.03 0.00-0.20 K/uL Absolute Immature Granulocyte (auto 0.02 0-1 K/uL Nucleated Red Blood Cells 0.0 0.0-0.19 % Chemistry Labs: Test 10/05/24 10:52 10/05/24 04:35 10/04/24 17:12 Range/Units Whole Blood Glucose 211 H 70-110 MG/DL Sodium Level 137 136-145 mmol/L Potassium Level 4.3 3.5-5.1 mmol/L Chloride Level 103 101-111 mmol/L Carbon Dioxide Level 27 21-32 mmol/L Blood Urea Nitrogen 26 H 7-18 mg/dL Creatinine 1.6 H 0.5-1.3 mg/dL Glomerular Filtration Rate Calc 43 >90 mL/min Random Glucose 253 H 70-105 mg/dL Total Calcium 8.6 8.5-10.1 mg/dL Total Bilirubin 0.2 0.2-1.0 mg/dL Aspartate Amino Transf (AST/SGOT) 15 10-37 U/L Alanine Aminotransferase (ALT/SGPT) 15 12-78 U/L Alkaline Phosphatase 85 50-136 U/L Total Protein 6.8 6.0-8.3 g/dL Albumin 2.9 L 3.5-5.0 g/dL Triglycerides Level 268 H 30-200 mg/dL Cholesterol Level 136 <200 mg/dL LDL Cholesterol 68 0-99 mg/dL HDL Cholesterol 37 29-71 mg/dL Hemoglobin A1c 9.1 H 4.0-6.0 % Estimated Average Glucose (eAG) 214 H 70-126 mg/dL Magnesium Level 2.00 1.80-2.40 mg/dL Total Creatine Kinase 66 21-232 U/L Troponin I High Sensitivity 19.3 4-75 ng/L B-Type Natriuretic Peptide 86 0-100 pg/mL Thyroid Stimulating Hormone (TSH) 1.18 # 0.36-3.74 uIU/mL DIAGNOSTICS / RADIOLOGY RESULTS: [ ] PLAN NEURO: Minimize central acting medications as possible. Maintain fall precautions, adequate lighting during the day PULMONARY: Supplemental 02 as needed. Maintain aspiration precautions at all times CARDIOVASCULAR: Follow hemodynamics. Vital signs per facility protocol GI & NUTRITION: Continue with nutritional support. Continue stool softeners and laxatives as needed. KIDNEYS & ELECTROLYTES: Strict monitoring of intake, output and overall fluid balance. Avoid nephrotoxic medications to the extent possible. Medications to be dosed according to renal function. Monitor electrolytes and replace as needed ENDOCRINE: Maintain blood glucose between 100-180 at all times. Hypoglycemia protocol in place INFECTIOUS DISEASE: Trend temperature, WBC and procalcitonin level Follow cultures, deescalate antibiotics as soon as possible. Panculture if new onset fever ONCOLOGY/HEMATOLOGY/COAGULATION: Monitor for s/s of bleeding Monitor hemoglobin, coagulation studies as needed SKIN: Pressure ulcer prevention per facility protocol Specialty mattress ORTHO/REHAB: Continue PT/OT Prophylaxis: Continue GI and DVT prophylaxis Code Status: Full Resuscitation Disposition: TBD Other: Total patient care time: 45 minutes KRISTIN VANG Oct 05, 2024 14:34
--- NOTE | 2024-10-05 17:36 | DS ---
[facility] DISCHARGE SUMMARY Date Patient Seen: Oct 05, 2024 Time of Visit: 17:36 Supervising Physician: Dr. Ari Dwyer Primary Care Physician: [Dr. Maggie Betancur ] Outpatient Specialists: [Dr. Chavez-cardiology ] Inpatient Consults: [Dr. 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 Patient claims he had a fainting episode last July 08 but did not seek hospitalization. He went today for his cardiac check-up and mentioned the incident to the TELEPHONE MECHANIC and was advised to get admitted for further work-up and plans for initiating on an unnamed blood thinner. He denies neurologic symptoms or gait instability. Physical assessment was unrevealing without respiratory or cardiac compromise. Goals of care were discussed with the patient and awaiting for further test results. ] The patient was treated for the following problems: This patient was admitted for a syncopal workup, Cardiology was brought on board. At this point the patient's syncope workup has been negative, he received echocardiogram at which point cardiology has cleared the patient for discharge to follow up with them as outpatient. ACTIVE PROBLEM LIST FOR THE HOSPITALIZATION: Syncopal work-up-POA HX of A.flutter s/p ablation CAD s/p CABGx4 and stent x3 Primary HTN Diabetes mellitus HLD Prostate CA s/p radiation and surgery; on remission AVTAR Hypothyroidism HX of sepsis and ESBL HX of Kidney stone HX of c.diff CHRONIC PROBLEMS: continue previous management per PCP unless otherwise indicated [employer]UX [employer] ADMINISTRATOR FINDINGS/RECOMMENDATIONS: [ ] PROCEDURES: as mentioned above DISCHARGE MEDICATIONS: Pt hemodynamically stable and afebrile at time of discharge. PCP notified of patients admission, hospital course and discharge. PHYSICAL EXAM: GENERAL: alert, awake oriented x 3 HEENT: EOMI, Sclera non icteric, moist mucosa NECK: Supple, no JVD, trachea midline LUNGS: Clear breath sounds bilaterally. No wheezes HEART: Regular rate and rhythm. Normal S1 and S2, without murmurs ABD: Abdomen soft, nontender. Bowel sounds present EXT: No clubbing cyanosis or edema NEURO: Alert and oriented to person, follows commands FOLLOW-UP: Follow-up with PCP in 2-3 days RECOMMENDATIONS: See Discharge Instructions This case was seen and discussed with my supervising physician. More than 30 minutes spent on discharge process, including evaluation of the patient, discussion with nursing staff, medication reconciliation and follow-up appointments KRISTIN VANG Oct 05, 2024 17:36
--- NOTE | 2024-10-05 18:00 | NUR ---
PATIENT BEING DC WITH AT BEDSIDE. REMOVED 20G PIV FROM THE LEFT FOREARM, TIP INTACT, NO REDNESS OR SWELLING NOTED TO SITE. APPLIED A GAUZE AND TAPE DRESSING TO SITE. INFORMED PATIENT TO FOLLOW UP WITH PCP IN 2-3 DAYS AND TO FOLLOW UP WITH SURVEILLANCE INVESTIGATOR SOON POSSIBLE TO GET 2D ECHO RESULTS AND FOR A POSSIBLE HEART MONITOR. PATIENT AGREED TO DO SO. PATIENT DENIES ANY PAIN OR DISCOMFORT AT THIS TIME. PATIENT BEING WHEELED DOWN TO LOBBY BY CROWN IRONER OPERATOR, VALERY TO PRIVATE VEHICLE PROVIDED BY .
[2024-10-05] MEDS ORDERED: atorVAStatin 40 MG TABLET PO SCH (21:00)
[2024-10-05] MEDS ORDERED: metOPROLol sucCINATE 25 MG TAB.SR.24H PO SCH (21:00)
[2024-10-05] MEDS ORDERED: mirtAZAPine 15 MG TABLET PO SCH (21:00)
--- NOTE | 2024-10-06 11:32 | HMCSR ---
APPROVED REPORT EXAM: Two-dimensional and M-mode echocardiogram with Doppler and color Doppler. INDICATION ICD: New onset of a flutter 2D Dimensions RVDd3.6 cmLVEF(%)69.9 (>50%)LVED Vol(simp.)67.4 mL LVDd4.1 (3.8-5.6cm)FS(%)39 %LVES Vol(simp.)20.3 mL PWd1.6 (0.7-1.1cm)LA (2D)4.6 (1.6-4.0cm)LVEF(%, simp.)70 % IVSs1.3 cmAo Root(2D)3.3 (2.0-3.7cm)LA ESV INDEX (4CH)37.60 mL/m2 LVDs2.5 (2.5-4.0cm)LVOT diam2.2 (1.8-2.4cm)LA ESV INDEX (2CH)31.20 mL/m2 PWs2.3 cmLA ESV INDEX (BP)34.00 mL/m2 M-Mode Dimensions EPSS0.4 cm LA (MM)4.8 (1.6-4.0cm) Ao Root(MM)3.4 (2.0-3.7cm) Aortic Valve AoV VTI0.4 mAo Mean GR7.0 mmHgLVOT VTI0.27 m DEIRDRE (VMAX)2.5 cm2AVA (VTI) 2.5 cm2 Mitral Valve MV E Vmax48.0 cm/sDECEL Uqbd819 ms MV A Vmax75.2 cm/sP 1/2 T87 ms E/A ratio0.6MVA (PHT)2.5 cm2 MR Max PG25 mmHg TDI E/E' Zbnvny19.4E/E' Lateral8.7 Medial E' Peak V4.20 cm/sLateral E' Peak V5.50 cm/s Tricuspid Valve TR Vmax2.4 m/s TR Peak GR22.3 mmHg Left Ventricle The left ventricle is normal size. . There is normal LV segmental wall motion. There is normal left v entricular wall thickness. The LVEF is > 65%. Stage I diastolic dysfunction. Right Ventricle The right ventricle is normal size. The right ventricular systolic function is normal. Atria The left atrium size is normal. The right atrium size is normal. Aortic Valve The aortic valve is normal in structure. No aortic regurgitation is present. There is no aortic valvu lar stenosis. Mitral Valve The mitral valve is normal in structure. There is no mitral valve regurgitation noted. There is no mi tral valve stenosis. Tricuspid Valve The tricuspid valve is normal in structure. There is no tricuspid valve regurgitation noted. Pulmonic Valve The pulmonary valve is normal in structure. There is no pulmonic valvular regurgitation. Great Vessels The aortic root is normal in size. The IVC is normal in size and collapses >50% with inspiration. Pericardium There is no pericardial effusion. Other Information Quality : Technically difficult study due to body habitus Conclusion The LVEF is > 65%. Stage I diastolic dysfunction. . There is normal LV segmental wall motion. The aortic root is normal in size. There is no pericardial effusion.
== END 2024-10-05 18:14 | disposition home or self-care (01) ==
LOC: EDH 16:33 → EDHIP 16:43 → 4CH 21:23
PROVIDERS: ADMIT Internal Medicine Critical Care Medicine; ATTEND Internal Medicine Critical Care Medicine
DX: R55 Syncope and collapse (principal); I10 Essential (primary) hypertension; E11.9 Type 2 diabetes mellitus without complications; E87.5 Hyperkalemia; I25.10 Atherosclerotic heart disease of native coronary artery without angina pectoris; C61 Malignant neoplasm of prostate; E03.9 Hypothyroidism, unspecified; G47.33 Obstructive sleep apnea (adult) (pediatric); R29.810 Facial weakness; R60.0 Localized edema; E66.9 Obesity, unspecified; E78.5 Hyperlipidemia, unspecified; I44.0 Atrioventricular block, first degree; I48.92 Unspecified atrial flutter; I65.21 Occlusion and stenosis of right carotid artery; Z95.1 Presence of aortocoronary bypass graft; Z92.3 Personal history of irradiation; Z85.46 Personal history of malignant neoplasm of prostate; Z79.899 Other long term (current) drug therapy; Z68.33 Body mass index [BMI] 33.0-33.9, adult
CPT/HCPCS: 83036; 84443; 82550; 83735; 84484; 80048; 83880; 85025; 87086; 81001; 36415 ×2; 70450; 93880; 93005; 80061; 80053; 82948 ×3; 82533; 93306; 70551; G0378 ×23; G0379; J1815 ×4

== ENCOUNTER → 2025-03-25 | Outpatient (CLI) | payer OTHER ==
[~2025-03-25] MED LIST changes: +LEVO250T75 PO; +REPA2TAB8 PO
--- NOTE | 2025-03-25 15:27 | HMCIMG ---
Exam Type: US RENAL SONOGRAM Clinical Information: Hematuria, unspecified Comparison: None Findings: Right kidney normal in size and echogenicity. Left kidney atrophic but normal in echogenicity. No hydronephrosis. No calculi. No renal masses. Post void residual urinary bladder, 194 cc. Simple cysts both kidneys. IMPRESSION: Postvoid residual of the urinary bladder as noted above consistent with urinary retention.
== END | disposition home or self-care (01) ==
LOC: RAH 14:30
PROVIDERS: ATTEND Internal Medicine
DX: N28.1 Cyst of kidney, acquired (principal); N26.1 Atrophy of kidney (terminal); R39.198 Other difficulties with micturition; R31.9 Hematuria, unspecified; Z85.46 Personal history of malignant neoplasm of prostate
CPT/HCPCS: 76770

== ENCOUNTER → 2025-06-19 | Outpatient (CLI) | payer OTHER | END | disposition home or self-care (01) | LOC: RESP 12:43 | PROVIDERS: ATTEND Internal Medicine Cardiovascular Disease | DX: R06.02 Shortness of breath (principal) | CPT/HCPCS: 94060; 94729 ==

== ENCOUNTER 2025-08-19 05:50 | Day surgery (SDC) | payer OTHER ==
[2025-08-16 10:45] LABS: IMMATURE GRANULOCYTE ABSOLUTE 0.04 K/uL (0-1); NUCLEATED RED BLOOD CELLS 0.0 % (0.0-0.19); PLATELET COUNT (AUTO) 254 K/uL (130-400); RED BLOOD CELL COUNT(AUTO) 4.78 MIL/uL (4.50-6.20); RED CELL DISTRIBUTION WIDTH 14.0 % (11.0-15.5); WHITE BLOOD COUNT (AUTO) 8.6 K/uL (4.8-10.8)
--- NOTE | 2025-08-16 10:48 | EKG ---
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: [id number] : 1945 Requested By: SAMI KHAN Order Number: [id number] Reading MD: Peter Alfonso Measurements Intervals [place] Rate: 81 P: 54 UT: 279 QRS: 58 QRSD: 139 T: 114 QT: 417 QTc: 483 Interpretive Statements Sinus rhythm Prolonged UT interval Right bundle branch block Inferior infarct, old Nonspecific T abnormalities, lateral leads Compared to ECG 10/04/2024 17:06:25 Myocardial infarct finding now present T-wave abnormality now present Possible ischemia no longer present Electronically Signed On 08-16-2025 10:58:27 CDT by Peter Alfonso Please click the below link to view image of tracing.
[2025-08-16 11:14] LABS: CREATININE 1.7 mg/dL (0.5-1.3); GLOMERULAR FILTR. RATE CALC 40.0 mL/min (>90); GLUCOSE,RANDOM 228.0 mg/dL (70-105); SODIUM SERUM 137.0 mmol/L (136-145); UREA NITROGEN, BLOOD 23.0 mg/dL (7-18)
[2025-08-16 11:15] VITALS: BP 131/74; PULSE 94; RESP 14; TEMP 97
[2025-08-16 11:38] LABS: INR 1.03 (0.85-1.15)
[2025-08-19] VITALS (7 sets, daily range): BP systolic 128–160; BP diastolic 57–77; PULSE 61–70; RESP 11–15; TEMP 97
[~2025-08-19] VITALS: Ht 185.4 cm; Wt 112.8 kg
[~2025-08-19 05:50] MED LIST changes: +INSULIN SQ; -LEVO250T75 PO; -REPA1TAB5 PO; -REPA2TAB8 PO; +SEMA1PEN3 SQ
[2025-08-19] MEDS: 0.9%NACL 1000ML 1,000 ML IV SCH (06:47)
[2025-08-19] MEDS ORDERED: LIDOCAINE HCL 400MG/20ML VIAL ONE (07:36)
[2025-08-19] MEDS ORDERED: SODIUM BICARB 50MEQ 50ML VIAL 50 ML ONE (07:37)
[2025-08-19] MEDS ORDERED: HEParin-NS 1,000 UNIT/500 ML 500 ML IV ONE (07:37)
[2025-08-19] MEDS ORDERED: MIDAZOLAM HCL 1 MG/ML 2ML VIAL ONE ×3 (07:52→09:47)
[2025-08-19] MEDS ORDERED: ISOPROTERENOL HCL 0.2 MG/ML AMP/VIAL/BAG ONE ×2 (08:27→09:43)
[2025-08-19] MEDS ORDERED: LIDOCAINE HCL 1% MDV 50ML VIAL ONE (08:57)
--- NOTE | 2025-08-19 09:29 | NUR ---
Updated , Elzbieta regarding need for AICD as per Dr. Charles. She stated "I totally agree to whatever Dr. Charles needs to do". Dr. Charles here to speak with her at length. Consent for AICD obtained from , Elzbieta. All questions answered.
[2025-08-19] MEDS ORDERED: TRAM50TA4 PO (11:11)
--- NOTE | 2025-08-19 13:43 | NUR ---
Right Femoral site without sign of bleeding bruising or hematoma. Dressing remains clean and dry. Pedal pulses intact to ble's. Patient and Family instructed on importance of keeping right leg straight and POC after discharge. Both voiced understanding in full. Left chest wall dressing clean, dry and intact. He remains neurovascularly intact. Sling appropriate to left arm. Full and complete discharge instructions given to Patient and both verbally and in writing. All questions answered. Provided dressing change supplies. CXR forwarded to DR Charles for clearance. PIV removed with catheter tip intact.
--- NOTE | 2025-08-19 14:09 | NUR ---
CRX cleared at bedside by Physician. W/C to POV with to home.
--- NOTE | 2025-08-19 14:30 | HMCIMG ---
EXAM: CR Chest, 2 View. CLINICAL HISTORY: s/p ICD COMPARISON: May 23 2024 FINDINGS: LUNGS: The lungs show no infiltrate or other acute finding. PLEURAL SPACES: No pleural effusion or pneumothorax. MEDIASTINUM: The cardiomediastinal silhouette is within normal limits. BONES: No acute osseous abnormality. Cardiac pacemaker is seen. 1-lead is in the right atrium and the other 1-lead is in the right atrium and the other right ventricle IMPRESSION: No acute cardiopulmonary pathology is evident. /[place]
== END 2025-08-19 14:29 | disposition home or self-care (01) ==
LOC: DAH 05:50
PROVIDERS: ATTEND Internal Medicine Cardiovascular Disease
DX: I49.5 Sick sinus syndrome (principal); R00.1 Bradycardia, unspecified; I44.0 Atrioventricular block, first degree; I45.10 Unspecified right bundle-branch block; I45.89 Other specified conduction disorders; I44.4 Left anterior fascicular block; I48.92 Unspecified atrial flutter; I25.10 Atherosclerotic heart disease of native coronary artery without angina pectoris; I12.9 Hypertensive chronic kidney disease with stage 1 through stage 4 chronic kidney disease, or unspecified chronic kidney disease; E11.22 Type 2 diabetes mellitus with diabetic chronic kidney disease; N18.30 Chronic kidney disease, stage 3 unspecified; G47.33 Obstructive sleep apnea (adult) (pediatric); E78.5 Hyperlipidemia, unspecified; E03.9 Hypothyroidism, unspecified; E66.9 Obesity, unspecified; Z68.32 Body mass index [BMI] 32.0-32.9, adult; Z79.82 Long term (current) use of aspirin; Z79.890 Hormone replacement therapy; Z82.49 Family history of ischemic heart disease and other diseases of the circulatory system; Z79.899 Other long term (current) drug therapy; Z98.890 Other specified postprocedural states
CPT/HCPCS: 80048; 85025; 85610; 85730; 36415; 93005; 93620; 93623; 33249; 99156; 99157 ×6; 82948 ×2; 71045; A4223 ×3; A4554; C1777; C1898; C1894 ×2; C1721; C1730 ×2; A4649; C1760 ×2; J3010 ×2; J0690; J3490 ×4; J0665; J2250 ×3; J1644; A4215; A6402; A4335; A4222; A4221; A4663; A4216; A6258; A4606